=== PATIENT | female | born 1995 | race Caucasian/White ===

== ENCOUNTER 2020-07-23 14:58 | Emergency (ER) | payer BC, SELFPAY ==
--- NOTE | ~2020-07-23 | XR_ITS ---
XR chest 1V portable DATE: 07/23/2020 15:32 INDICATION: Dizziness, chest pressure. Difficulty swallowing. Numbness. TECHNIQUE: Portable AP chest on 07/23/2020 at 1522 hours COMPARISON: 04/03/2017 PA and lateral chest FINDINGS: Normal heart size. No hilar or mediastinal enlargement. No pulmonary infiltrate or consolidation, pleural effusion or pulmonary vascular congestion or pneumo thorax is evident. Included skeletal structures are unremarkable. IMPRESSION: No active cardiopulmonary disease Reviewed, dictated and finalized at location A.
--- NOTE | ~2020-07-23 | CT_ITS ---
EXAMINATION: CTA brain carotid EXAM DATE: 07/23/2020 16:50 INDICATION: Numbness, symptoms one week. TECHNIQUE: Noncontrast head CT. Spiral CTA of the carotid arteries was performed with intravenous i njection 100 cc of Omnipaque 350. Axial, coronal, sagittal reformatted images reviewed. Additional r eformatted images created on dedicated 3-D workstation. NASCET comparable standard used to assess th e degree of arterial stenosis. Spiral CT angiogram cerebral arteries performed with the same intrave nous injection of contrast. Source images of the brain CTA transferred to dedicated workstation for 3 -D rotational image creation. Coronal, sagittal maximum intensity pixel images also reviewed. The d ose-length product (DLP) for this examination was 1641.35 mGy-cm. The exposure was tailored accordi ng to patient size, and iterative reconstruction (ASIR) was used as additional dose reduction techniq ue. There is no prior study for comparison. FINDINGS: There is no carotid arteriosclerosis or stenosis. There is no carotid or vertebral basilar arterial dissection or fibromuscular dysplasia. There are no cerebral artery aneurysms. There is sym metric cerebral artery arborization. The sagittal, transverse and sigmoid sinuses enhance normally, n o venous sinus thrombosis. Internal cerebral veins also enhance normally. There are no areas of abnormal enhancement on the post contrast images. There is no acute intrapare nchymal hemorrhage. No evidence of intraparenchymal brain mass lesion. No evidence of acute infarct ion. There is no mass effect or midline shift. There is no obstructive hydrocephalus suspected. Ther e are no extra-axial collections. There are no calvarial acute fractures. IMPRESSION: 1. Unremarkable CTA brain carotid exam. 2. 0% carotid stenosis bilaterally. Reviewed, dictated and finalized at location A.
[2020-07-23 15:03] VITALS: BP 132/100; PULSE 80; RESP 16; TEMP 36.8; O2SAT 99
--- NOTE | 2020-07-23 15:09 | ECG_ITS ---
Measurements Intervals [place] Rate: 54 P: 33 LA: 137 QRS: -14 QRSD: 101 T: 0 QT: 398 QTc: 380 Interpretive Statements SINUS BRADYCARDIA POSSIBLE LEFT ATRIAL ENLARGEMENT INCOMPLETE RIGHT BUNDLE BRANCH BLOCK POSSIBLE LEFT VENTRICULAR HYPERTROPHY DELAYED PRECORDIAL R/S TRANSITION BORDERLINE T WAVE ABNORMALITY- ANT/INF LEADS BASELINE ARTIFACT- I, II, AVR BORDERLINE ECG Electronically Signed On 07-23-2020 15:55:36 CDT by Roly Taylor D.O.
[2020-07-23 15:44] LABS: Basophils Absolute Auto 0.1 K/mm3 (0.0-0.1); Eosinophils Absolute Auto 0.2 K/mm3 (0-0.3); Eosinophils Percent Auto 2.5 % (0-4.4); Hematocrit 45.7 % (37.0-47.0); Immature Granulocyte Absolute 0.02 K/mm3 (0.00-0.031); Immature Granulocyte Percent A 0.3 % (0-0.5); Lymphocytes Percent Auto 21.5 % (18.3-44.2); Mean Corpuscular HGB Conc 32.8 g/dl (32-36); Mean Corpuscular Hemoglobin 27.9 pg (26-34); Mean Corpuscular Volume 84.9 fl (80-100); Monocytes Absolute Auto 0.6 K/mm3 (0.1-0.6); Monocytes Percent Auto 10.2 % (2.6-8.5); Neutrophils Absolute Auto 3.9 K/mm3 (1.3-6.7); Neutrophils Percent Auto 64.5 % (45.5-73.1); Platelet Count Result 249 k/mm3 (150-375); Red Blood Count 5.38 M/mm3 (4.2-5.4); Red Cell Distribution Width 15.4 % (11.5-14.5); White Blood Count 6.1 K/mm3 (4.5-10.0)
[2020-07-23 15:54] LABS: Anion Gap 11 mmol/L (8-16); Blood Urea Nitrogen 5 mg/dL (7-17); Calcium 9.4 mg/dL (8.4-10.2); Carbon Dioxide 23 mmol/L (22-30); Chloride 103 mmol/L (98-107); Estimated CRCL calculation 168 ml/min; Estimated Glomerular Filt Rate > 60; Glucose 81 mg/dL (65-105); Potassium 3.4 mmol/L (3.4-5.0); Sodium 137 mmol/L (137-145)
[2020-07-23 15:58] LABS: INR 1.2; Prothrombin Time 15.2 Seconds (11.1-14.7)
[2020-07-23 15:59] VITALS: BP 118/59; PULSE 87; RESP 19; O2SAT 97
[2020-07-23 15:59] LABS: Partial Thromboplastin Time 28.9 SECONDS (22.3-36.8)
[2020-07-23 16:06] LABS: Troponin I < 0.012 ng/mL (0.000-0.034)
[2020-07-23 16:27] LABS: Add Urine Microscopic? YES; Appearance Urine Cloudy (Clear); Bacteria Urine Trace /hpf; Bilirubin Urine Negative (Negative); Blood Urine Negative (Negative); Color Urine Yellow (Yellow); Glucose Urine UA Negative (Negative); Ketones Urine Trace mg/dL (Negative); Leukocyte Esterase Ur 3+ LEU/UL (Negative); Mucus Urine Heavy /lpf; Nitrate Urine Negative (Negative); Protein Urine Negative (Negative); Specific Grav Ur 1.021 (1.001-1.035); Squamous Epithelial Cell Urine Many /hpf (Few); WBC Urine 21-30 /hpf
[2020-07-23 16:28] LABS: Barbiturate Screen Urine Negative (Negative); Benzodiazepines Screen Urine Negative (Negative)
[2020-07-23 16:33] LABS: Cannabinoid Screen Urine Negative (Negative); Cocaine Screen Urine Negative (Negative); Methadone Screen Urine Negative (Negative); Opiate Screen Urine Negative (Negative); Phencyclidine Screen Urine Negative (Negative)
[2020-07-23 16:35] LABS: Amphetamine Screen Urine Negative (Negative)
[2020-07-23] MEDS: KETOROLAC 30 MG/ML VIAL (*BKC) IV PUSH (16:46)
[2020-07-23] MEDS: MECLIZINE HCL 25 MG TABLET PO (16:46)
[2020-07-23] MEDS: SODIUM CHLORIDE 0.9% IV 1,000 ML 999 ML IV CONT (16:46)
[2020-07-23 18:00] LABS: Pregnancy On Board Control Positive; Urine Pregnancy Test Negative
--- NOTE | 2020-07-23 18:31 | ED.GENADULT ---
HPI - General Adult General Chief complaint: Neuro Symptoms/Deficit <SKINNY Lewis Last Filed: 07/23/20 18:37> Stated complaint: Complete body numbness <KSINNY Lewis Last Filed: 07/23/20 18:37> Time Seen by Provider: 07/23/20 15:32 <SKINNY Lewis Last Filed: 07/23/20 18:37> Source: patient <SKINNY Lewis Last Filed: 07/23/20 18:37> Mode of arrival: ambulatory <SKINNY Lewis Last Filed: 07/23/20 18:37> Limitations: no limitations <SKINNY Lewis Last Filed: 07/23/20 18:37> History of Present Illness HPI narrative: Patient is a 24-year-old female who presents with paresthesias which are described as involving the entire body except for the hands and feet patient was seen for this in the last week at an outside facility had evaluation there was advised to follow with primary care and neurology. Patient notes that her symptoms have persisted have been present for roughly a week or more. Patient denies injury trauma or similar occurrence in the past. Patient does note recent history of gastric bypass but notes that that has not been an issue and she has healed well. Patient denies any vomiting diarrhea chest pain shortness of breath. Patient notes history of migraines and states that she has been experiencing migraines. Today patient notes left-sided headache <SKINNY Lewis Last Filed: 07/23/20 18:37> Related Data Home medications: Home Medications Medication Instructions Recorded Confirmed propranolol 07/23/20 07/23/20 sertraline mg 07/23/20 trazodone 07/23/20 <SKINNY Lewis Last Filed: 07/23/20 18:37> Allergies/adverse reactions: Allergies Allergy/AdvReac Type Severity Reaction Status Date / Time No Known Allergies Allergy Verified 07/23/20 15:07 <SKINNY Lewis Last Filed: 07/23/20 18:37> Review of Systems Review of Systems: All systems reviewed & are unremarkable except as noted in HPI and below <SKINNY Lewis Last Filed: 09/11/20 18:37> PMFSH Past Medical History Medical History: Medical History (Updated 07/23/20 @ 18:36 by Shiva Leavitt PA-C) Depression Migraine headache Obesity <Shiva Leavitt PA-C - Last Filed: 07/23/20 18:37> Surgical History Surgical History: Surgical History (Updated 07/23/20 @ 18:33 by Shiva Leavitt PA-C) Gastric bypass status for obesity <Shiva Leavitt PA-C - Last Filed: 07/23/20 18:37> Family History Family History: Family History (Updated 07/09/14 @ 07:13 by DOCTOR UNKNOWN) Sibling Asthma Other Diabetes mellitus Family history of arthritis Family history of heart disease in male family member before age 55 Family history of lung cancer Family history of malignant neoplasm Family history of malignant neoplasm of male breast Family history of malignant neoplasm of ovary Family history of migraine headaches Family history of throat cancer Hypertension <Shiva Leavitt PA-C - Last Filed: 07/23/20 18:37> Social History Social History: Social History Smoking status: Never smoker Second hand tobacco smoke exposure: Yes Alcohol intake: never Gender identity (if verbalized by the patient): Female <Shiva Leavitt PA-C - Last Filed: 07/23/20 18:37> Exam Narrative: Exam Narrative: GENERAL: Well-appearing, obese, and in no acute distress. HEAD: Normocephalic, atraumatic. EYES: PERRLA and EOMI. ENT: Nares clear, no rhinorrhea or epistaxis. Mucous membranes moist. Oropharynx without tonsillar hypertrophy exudate or other lesions. NECK: Supple. No adenopathy or masses. No carotid bruits or JVD CHEST: Clear to auscultation. No respiratory distress. No wheezes rales or rhonchi HEART: Regular rate and rhythm. No murmur heard. Normal peripheral pulses. ABDOMEN: Soft, nontender, n
[2020-07-23 18:54] VITALS: BP 123/81; PULSE 62; RESP 15; O2SAT 100
--- NOTE | 2020-08-07 08:47 | PC.NURSE ---
1837 LATE ENTRY::::: This pt recieved 100 ml of Ofirmev that was completed at 1837 on 07/23/20 by this RN
== END 2020-07-23 18:55 | disposition home or self-care (01) ==
PROVIDERS: Emergency Medicine; Emergency Medicine Emergency Medical Services; Emergency Provider Emergency Medicine
DX: R20.2 Paresthesia of skin (principal); R51 Headache; N39.0 Urinary tract infection, site not specified; Z98.84 Bariatric surgery status; F32.9 Major depressive disorder, single episode, unspecified; E66.9 Obesity, unspecified; Z68.38 Body mass index [BMI] 38.0-38.9, adult; R00.1 Bradycardia, unspecified; I45.10 Unspecified right bundle-branch block; R94.31 Abnormal electrocardiogram [ECG] [EKG]
CPT/HCPCS: 36415; 70496; 70498; 71045; 80048; 80307; 81001; 81025; 82948; 84484; 85025; 85610; 85730; 87086; 87088; 93005; 96361; 96374; 96375; 99284; A9270; J0131; J1885; J7030; Q9967